=== PATIENT | female | born 1985 | race Caucasian/White ===

== ENCOUNTER 2017-08-06 00:29 | Emergency (ER) | payer OTHER ==
[2017-08-06 00:41] VITALS: BP 146/89; PULSE 106; RESP 18; TEMP 98.5
--- NOTE | 2017-08-06 01:25 | ED ---
General Adult HPI - General Chief complaint: ENT Stated complaint: ear pain,dizziness Time Seen by Provider: 08/06/17 00:51 Source: patient, family, RN notes reviewed Mode of arrival: ambulatory Limitations: no limitations - History of Present Illness Initial comments: 32-year-old female presents to the emergency department with a chief complaint of left-sided ear pain and dizziness. Patient states she's had this for about 2 weeks. She's been to the doctor and she went to an ENT. They state that she had some fluid behind her ear there referring her to an additional ENT to further evaluate. They state that she is also of severe hearing loss left ear. Patient states today she started noticing dizziness associated with this ear pain so she was concerned. Patient does admit to any other complaints such as weight loss as well as concern for hair loss. She states that she is most concerned due to the dizziness and ear pain and she is hoping that she could have us help her figure it out. She is hoping she had a CAT scan of her head. Patient's concerned maybe about living in her ear. Patient denies any recent fever, chills, shortness of breath, chest pain, back pain, abdominal pain, nausea vomiting, numbness or tingling, dysuria or hematuria, constipation or diarrhea, headaches or visual changes, or any other current symptoms. - Related Data Home Medications Medication Instructions Recorded Confirmed No Known Home Medications [No 08/06/17 08/06/17 Known Home Medications] Allergies Allergy/AdvReac Type Severity Reaction Status Date / Time No Known Allergies Allergy Verified 08/06/17 00:41 Review of Systems ROS Statement: Those systems with pertinent positive or pertinent negative responses have been documented in the HPI. ROS Other: All systems not noted in ROS Statement are negative. Past Medical History Past Medical History: No Reported History History of Any Multi-Drug Resistant Organisms: None Reported Past Surgical History: Back Surgery, Tonsillectomy Past Psychological History: No Psychological Hx Reported Smoking Status: Current every day smoker Past Alcohol Use History: None Reported Past Drug Use History: None Reported General Exam - General Exam Comments Initial Comments: General: The patient is awake and alert, in no distress, and does not appear acutely ill. Eye: Pupils are equal, round and reactive to light, extra-ocular movements are intact; there is normal conjunctiva bilaterally. No signs of icterus. Ears, nose, mouth and throat: There are moist mucous membranes and no oral lesions. Fluid noted behind both tympanic membranes noted. Neck: The neck is supple, there is no tenderness. Cardiovascular: There is a regular rate and rhythm. No murmur, rub or gallop is appreciated. Respiratory: Lungs are clear to auscultation, respirations are non-labored, breath sounds are equal. No wheezes, stridor, rales, or rhonchi. Gastrointestinal: Soft, non-distended, non-tender abdomen without masses or organomegaly noted. There is no rebound or guarding present. No CVA tenderness. Bowel sounds are unremarkable. Back: There is no tenderness to palpation in the midline. There is no obvious deformity. No rashes noted. Musculoskeletal: Normal ROM, no tenderness, There is no pedal edema. There is no calf tenderness or swelling. Sensation intact. Pulses equal bilaterally 2+. Neurological: CN II-XII intact, There are no obvious motor or sensory deficits. Coordination appears grossly intact. Speech is normal. Skin: Skin is warm and dry and no rashes or lesions are noted. Psychiatric: Cooperative, appropriate mood & affect, normal judgment. Limitations: no limitations Course Vital Signs 08/06/17 00:35 Temperature 98.5 F Pulse Rate 106 H Respiratory 18 Rate Blood Pressure 146/89 O2 Sat by Pulse 100 Oximetry Medical Decision Making - Medical Decision Making 32-year-old female presents for left ear pain and dizziness. She was recently prescribed steroids. We discussed that she is not currently filled. All the symptoms are chronic it's just her dizziness is new today. We will do a CAT scan of her head to further evaluate. At this time CAT scan is negative. We discussed to take the steroids and to follow-up with ENT to further evaluate her left ear effusion. Patient is in agreement with plan all cushions have been answered. She'll be discharged. - Radiology Data Radiology results: report reviewed, image reviewed Disposition Clinical Impression: Acute effusion of left ear Disposition: HOME SELF-CARE Condition: Stable Instructions: Earache (ED) Additional Instructions: Please use medication as discussed. Please follow up with family doctor if symptoms have not improved over the next two days. Please return to the emergency room if your symptoms increase or worsen or for any other concerns. Referrals: Flip Orozco MD [Primary Care Provider] - 1-2 days Time of Disposition: 01:47
--- NOTE | 2017-08-06 01:32 | CT ---
EXAMINATION TYPE: CT brain wo con DATE OF EXAM: 08/06/2017 COMPARISON: NONE HISTORY: dizzy, right ear pain CT DLP: 926.50 mGycm. Automated Exposure Control for Dose Reduction was Utilized. TECHNIQUE: CT scan of the head is performed without contrast. FINDINGS: Ventricles and sulci appear normal. There is no mass effect nor midline shift. There is no sign of intracranial hemorrhage. The calvarium is intact. Mastoid sinuses appear normal. Right bearing grinder al auditory canal appears normal. CONCLUSION: Negative CT scan of the brain..
== END 2017-08-06 01:53 | disposition home or self-care (01) ==
LOC: EC 00:29
DX: H93.8X2 Other specified disorders of left ear (principal); F17.200 Nicotine dependence, unspecified, uncomplicated
CPT/HCPCS: 70450; 99284

== ENCOUNTER 2017-09-02 13:59 | Emergency (ER) | payer OTHER ==
[2017-09-02 14:04] VITALS: BP 132/90; PULSE 94; RESP 20; TEMP 97.8
--- NOTE | 2017-09-02 14:36 | ED ---
General Adult HPI - General Chief complaint: Recheck/Abnormal Lab/Rx Stated complaint: mass in head/tired Time Seen by Provider: 09/02/17 14:26 Source: patient, family, RN notes reviewed Mode of arrival: ambulatory Limitations: no limitations - History of Present Illness Initial comments: patient is a pleasant 32-year-old female presenting to the emergency department for fatigue. Patient has been having symptoms for the past month. Patient complains of generalized fatigue and sleeping sometimes up to 20 hours per day. Patient is having headaches. Patient is having blurry vision. Patient is having decreased hearing and fullness in her ears. Patient states sometimes her arms feel numb. No weakness. Patient did follow-up with her doctor and had MRI done. MRI showed frontal mass and patient has an appointment to see a specialist however does not for 3 more weeks. - Related Data Home Medications Medication Instructions Recorded Confirmed Amoxicillin 500 mg PO DAILY 09/02/17 09/02/17 Allergies Allergy/AdvReac Type Severity Reaction Status Date / Time No Known Allergies Allergy Verified 09/02/17 14:22 Review of Systems ROS Statement: Those systems with pertinent positive or pertinent negative responses have been documented in the HPI. ROS Other: All systems not noted in ROS Statement are negative. Constitutional: Denies: fever Eyes: Reports: vision change. Denies: eye pain ENT: Denies: ear pain Respiratory: Denies: cough Cardiovascular: Denies: chest pain Endocrine: Reports: fatigue Gastrointestinal: Denies: abdominal pain Genitourinary: Denies: urgency Musculoskeletal: Denies: back pain Skin: Denies: rash Neurological: Reports: headache, paresthesias, vertigo Past Medical History Past Medical History: No Reported History History of Any Multi-Drug Resistant Organisms: None Reported Past Surgical History: Back Surgery, Tonsillectomy Past Psychological History: No Psychological Hx Reported Smoking Status: Current every day smoker Past Alcohol Use History: None Reported Past Drug Use History: None Reported General Exam Limitations: no limitations General appearance: alert, in no apparent distress Head exam: Present: atraumatic Eye exam: Present: normal appearance, PERRL, EOMI ENT exam: Present: normal oropharynx, TM's normal bilaterally Neck exam: Present: normal inspection Respiratory exam: Present: normal lung sounds bilaterally Cardiovascular Exam: Present: regular rate, normal rhythm GI/Abdominal exam: Present: soft. Absent: tenderness Extremities exam: Present: normal inspection Neurological exam: Present: alert, CN II-XII intact. Absent: motor sensory deficit Expanded Patient oriented to: Present: person, place, time Speech: Present: fluid speech Cranial nerves: Facial Sensation: Normal Cerebellar function: Finger to Nose: Normal Sensory exam: Upper Extremity Light Touch: Normal, Lower Extremity Light Touch: Normal Motor strength exam: RUE: 5, LUE: 5, RLE: 5, LLE: 5 Eye Response: (4) open spontaneously Motor Response: (6) obeys commands Verbal Response: (5) oriented Psychiatric exam: Present: normal affect, normal mood Skin exam: Present: normal color Course Vital Signs 09/02/17 14:02 Temperature 97.8 F Pulse Rate 94 Respiratory 20 Rate Blood Pressure 132/90 O2 Sat by Pulse 100 Oximetry Medical Decision Making - Medical Decision Making MRI report obtained from [facility]. It does show a 9 x 4 mm nonspecific lesion. Possibly related to early chronic small vessel disease, dementia immunization from chronic migraine, early demyelinating disease. Patient does report chronic migraines since a young child. Patient states her symptoms are not significantly worsened since MRI was done on the first. patient has also had recent blood work. Patient does not want repeat computed tomography scan or repeat blood work done at this time and is comfortable with discharge home. Family is present. Disposition Clinical Impression: Cerebral lesion, Headache Disposition: HOME SELF-CARE Condition: Stable Instructions: General Headache (ED) Additional Instructions: please follow-up to primary care physician in the next day or 2 for recheck. Please follow-up also with neurology. Return for increased pain, weakness, drowsiness, unable to perform activities of daily living, fevers, worsening symptoms or other concerns. Referrals: Flip Orozco MD [Primary Care Provider] - 1-2 days Pardeep Austin MD [STAFF PHYSICIAN] - 1-2 days Time of Disposition: 15:13
== END 2017-09-02 15:22 | disposition home or self-care (01) ==
LOC: EC 13:59
DX: G93.9 Disorder of brain, unspecified (principal); R40.2142 Coma scale, eyes open, spontaneous, at arrival to emergency department; R40.2252 Coma scale, best verbal response, oriented, at arrival to emergency department; R40.2362 Coma scale, best motor response, obeys commands, at arrival to emergency department; F17.200 Nicotine dependence, unspecified, uncomplicated
CPT/HCPCS: 99283

== ENCOUNTER 2018-01-09 04:40 | Emergency (ER) | payer OTHER ==
[2018-01-09 04:48] VITALS: RESP 20
[2018-01-09] MEDS ORDERED: LORazepam 1 MG TAB PO STA (05:19)
--- NOTE | 2018-01-09 05:22 | ED ---
Medical Clearance HPI - General Chief complaint: Medical Clearance Stated complaint: Hypertension/Longterm Clearance Time Seen by Provider: 01/09/18 04:52 Source: patient Mode of arrival: ambulatory - History of Present Illness Initial comments: This patient is a 32-year-old woman brought to have clearance to be taken into police custody. The patient's of was being arrested and police noticed that she had what appeared to be some white powder on her hands and they believe that it was cocaine. The patient then was noted to have some palpitations and her heart rate was high. They brought her here for evaluation. The patient is denying chest pain. MD Complaint: medical clearance requested Onset/Timin -: hour(s) Reason for Medical Clearance: intoxication Place: street Traumatic Symptoms: denies traumatic injury Associated Symptoms: palpitations Treatments Prior to Arrival: none Home medications: Home Medications Medication Instructions Recorded Confirmed oxyCODONE-APAP 10-325MG [Percocet 1 tab PO Q6HR PRN 01/09/18 01/09/18 10-325 mg] Allergies/Adverse reactions: Allergies Allergy/AdvReac Type Severity Reaction Status Date / Time No Known Allergies Allergy Verified 01/09/18 04:48 Review of Systems ROS Statement: Those systems with pertinent positive or pertinent negative responses have been documented in the HPI. ROS Other: All systems not noted in ROS Statement are negative. Constitutional: Denies: fever Respiratory: Denies: cough, dyspnea Cardiovascular: Reports: palpitations. Denies: chest pain, dyspnea on exertion , edema Gastrointestinal: Denies: abdominal pain, vomiting, diarrhea Musculoskeletal: Denies: back pain Skin: Denies: rash Neurological: Denies: headache, weakness, numbness Psychiatric: Reports: anxiety Past Medical History Past Medical History: No Reported History Additional Past Medical History / Comment(s): brain tumor benign History of Any Multi-Drug Resistant Organisms: None Reported Past Surgical History: Back Surgery, Tonsillectomy Past Psychological History: No Psychological Hx Reported Smoking Status: Current every day smoker Past Alcohol Use History: None Reported Past Drug Use History: Marijuana General Exam Limitations: no limitations General appearance: alert, in no apparent distress, appears intoxicated Head exam: Present: atraumatic, normocephalic Eye exam: Present: normal appearance, PERRL, EOMI. Absent: scleral icterus, conjunctival injection ENT exam: Present: normal oropharynx Neck exam: Present: normal inspection, full ROM Respiratory exam: Present: normal lung sounds bilaterally. Absent: respiratory distress, wheezes, rales, rhonchi, stridor Cardiovascular Exam: Present: normal rhythm, tachycardia, normal heart sounds. Absent: systolic murmur, diastolic murmur, rubs, gallop GI/Abdominal exam: Present: soft. Absent: distended, tenderness, guarding, rebound, rigid Extremities exam: Present: normal inspection, normal capillary refill. Absent: pedal edema, calf tenderness Back exam: Present: normal inspection. Absent: CVA tenderness (R), CVA tenderness (L) Neurological exam: Present: alert Skin exam: Present: warm, dry, intact, normal color. Absent: rash Course Vital Signs 01/09/18 01/09/18 04:44 06:33 Temperature 98.9 F 98.6 F Pulse Rate 117 H 116 H Respiratory 20 20 Rate Blood Pressure 169/90 139/85 O2 Sat by Pulse 99 97 Oximetry Medical Decision Making - EKG Data -: EKG Interpreted by Ms EKG shows normal: sinus rhythm, axis (Normal), intervals (Normal), QRS complexes (Normal), ST-T waves (Normal) Rate: tachycardia (Rate approximately 108 bpm) Interpretation: normal EKG Disposition Clinical Impression: Tachycardia Disposition: HOME SELF-CARE Condition: Good Instructions: Tachycardia (ED) Referrals: Flip Orozco MD [STAFF PHYSICIAN] - 1-2 days
--- NOTE | 2018-01-09 06:10 | CT ---
EXAM: CT Head Without Intravenous Contrast CLINICAL HISTORY: ITS.REASON CT Reason: Pain TECHNIQUE: Axial computed tomography images of the head/brain without intravenous contrast. CTDI is 57.40 mGy and DLP is 978.20 mGy-cm. This CT exam was performed using one or more of the following dose reduction techniques: automated exposure control, adjustment of the mA and/or kV according to patient size, and/or use of iterative reconstruction technique. COMPARISON: 08/06/17 FINDINGS: Brain: Unremarkable. No hemorrhage. No significant white matter disease. No edema. Ventricles: Unremarkable. No ventriculomegaly. Bones/joints: Unremarkable. No acute fracture. Soft tissues: Unremarkable. Sinuses: Unremarkable as visualized. No acute sinusitis. Mastoid air cells: Unremarkable as visualized. No mastoid effusion. IMPRESSION: Normal head/brain CT.
[2018-01-09 06:34] VITALS: BP 139/85; PULSE 116; TEMP 98.6
== END 2018-01-09 06:33 | disposition home or self-care (01) ==
LOC: EC 04:40
DX: R00.0 Tachycardia, unspecified (principal); R00.2 Palpitations; F10.129 Alcohol abuse with intoxication, unspecified; F17.200 Nicotine dependence, unspecified, uncomplicated; Z86.011 Personal history of benign neoplasm of the brain; Z53.8 Procedure and treatment not carried out for other reasons
CPT/HCPCS: 70450; 99283

== ENCOUNTER 2024-07-15 17:41 | Inpatient (IN) | payer BC, OTHER ==
[2024-07-15] MEDS ORDERED: LORazepam 2 MG/ML INJ IV PRN ×3 (18:02)
--- NOTE | 2024-07-15 18:06 | ED ---
Seizure HPI - General Chief Complaint: Seizure Stated Complaint: Seizure Time Seen by Provider: 07/15/24 17:43 Source: EMS, RN notes reviewed, old records reviewed Mode of arrival: EMS Limitations: altered mental status - History of Present Illness Initial Comments: This is a 39-year-old female to ER from incarceration patient is on day 5 of incarceration with 5 days of alcohol abstinence as well as benzodiazepine abdomen secondary to incarceration patient presents with seizure MD Complaint: seizure, possible seizure -: minutes(s) Description of Episode: loss of consciousness, tonic-clonic movement -: second(s) Witnessed: yes - by bystander, yes - by EMS Trauma: Yes Seizure History: known seizure disorder, history of withdrawal seizures Place: home Possible Precipitating Event: none Associated Symptoms: denies other symptoms - Related Data Home Medications Medication Instructions Recorded Confirmed Acetaminophen [Tylenol] 650 mg PO TID PRN 07/15/24 07/15/24 Dicyclomine [Bentyl] 20 mg PO TID PRN 07/15/24 07/15/24 Loperamide HCl [Loperamide] 2 mg PO TID PRN 07/15/24 07/15/24 Promethazine [Phenergan] 25 mg PO TID PRN 07/15/24 07/15/24 cloNIDine HCL [Catapres] 0.1 mg PO TID PRN 07/15/24 07/15/24 hydrOXYzine pamoate [Vistaril] 50 mg PO TID PRN 07/15/24 07/15/24 Previous Rx's Medication Instructions Recorded Folic Acid 1 mg PO DAILY 30 Days #30 tab 07/18/24 Multivitamins, Thera [Multivitamin 1 each PO DAILY 30 Days #30 tab 07/18/24 (formulary)] Thiamine [Vitamin B-1] 100 mg PO DAILY 30 Days #30 tab 07/18/24 Allergies Allergy/AdvReac Type Severity Reaction Status Date / Time No Known Allergies Allergy Verified 07/15/24 17:58 Review of Systems ROS Statement: Those systems with pertinent positive or pertinent negative responses have been documented in the HPI. ROS Other: All systems not noted in ROS Statement are negative. Past Medical History Past Medical History: No Reported History Additional Past Medical History / Comment(s): brain tumor benign History of Any Multi-Drug Resistant Organisms: None Reported Past Surgical History: Back Surgery, Tonsillectomy Past Psychological History: No Psychological Hx Reported Smoking Status: Current every day smoker Past Alcohol Use History: Abuse, Daily, Heavy Past Drug Use History: Marijuana, Prescription Drug Abuse - Past Family History Father Family Medical History: Unable to Obtain General Exam Limitations: altered mental status General appearance: alert, in no apparent distress, anxious Head exam: Present: atraumatic, normocephalic, normal inspection Eye exam: Present: normal appearance, PERRL, EOMI. Absent: scleral icterus, conjunctival injection, periorbital swelling ENT exam: Present: normal exam, mucous membranes moist Neck exam: Present: normal inspection. Absent: tenderness, meningismus, lymphadenopathy Respiratory exam: Present: normal lung sounds bilaterally. Absent: respiratory distress, wheezes, rales, rhonchi, stridor Cardiovascular Exam: Present: regular rate, normal rhythm, normal heart sounds. Absent: systolic murmur, diastolic murmur, rubs, gallop, clicks GI/Abdominal exam: Present: soft, normal bowel sounds. Absent: distended, tenderness, guarding, rebound, rigid Extremities exam: Present: normal inspection, full ROM, normal capillary refill. Absent: tenderness, pedal edema, joint swelling, calf tenderness Back exam: Present: normal inspection Neurological exam: Present: alert, oriented X3, CN II-XII intact Psychiatric exam: Present: normal affect, normal mood Skin exam: Present: warm, dry, intact, normal color. Absent: rash Course Vital Signs 07/15/24 07/15/24 07/15/24 17:44 20:00 22:00 Temperature 98.6 F Pulse Rate 79 79 88 Respiratory 20 18 18 Rate Blood Pressure 111/72 119/82 111/70 O2 Sat by Pulse 98 97 98 Oximetry 07/16/24 07/16/24 07/16/24 00:00 00:51 02:00 Temperature 98.2 F Pulse Rate 86 80 Respiratory 18 18 Rate Blood Pressure 122/86 126/95 O2 Sat by Pulse 98 97 Oximetry 07/16/24 07/16/24 07/16/24 03:30 04:00 06:04 Temperature Pulse Rate 78 86 75 Respiratory 18 18 18 Rate Blood Pressure 134/81 110/85 124/90 O2 Sat by Pulse 100 100 99 Oximetry 07/16/24 13:28 Temperature 98 F Pulse Rate 82 Respiratory 19 Rate Blood Pressure 120/72 O2 Sat by Pulse 100 Oximetry - Reevaluation(s) Reevaluation #1: 07/15/24 18:39 Medical records reviewed Reevaluation #2: 07/15/24 18:39 Symptoms unchanged no recurrent seizure Reevaluation #3: 07/15/24 18:39 Patient informed of results questions answered Reevaluation #4: Was pt. sent in by a medical professional or institution (, [facility], [employer] [employer], urgent care, hospital, or [facility]...) When possible be specific @ -no Did you speak to anyone other than the patient for history (EMS, parent, family, police, friend...)? What history was obtained from this source @ -no Did you review nursing and triage notes (agree or disagree)? Why? @ -agree Are old charts reviewed (outside hosp., previous admission, EMS record, old EKG, old radiological studies, urgent care reports/EKG's, [facility] records)? Report findings @ -yes Differential Diagnosis (chest pain, altered mental status, abdominal pain women, abdominal pain men, vaginal bleeding, weakness, fever, dyspnea, syncope, headache, dizziness, GI bleed, back pain, seizure, CVA, palpatations, mental health, musculoskeletal)? @ -prior EKG interpreted by me (3pts min.). @ -yes X-rays interpreted by me (1pt min.). @ -no CT interpreted by me (1pt min.). @ -no U/S interpreted by me (1pt. min.). @ -no What testing was considered but not performed or refused? (CT, X-rays, U/S, labs)? Why? @ -none What meds were considered but not given or refused? Why? @ -none Did you discuss the management of the patient with other professionals (professionals i.e. [facility], [employer], lab, RT, psych nurse, social economist, fuller brush man, teacher, security police officer, rn case manager hospice)? Give summary @ -no Was smoking cessation discussed for >3mins.? @ -no Was critical care preformed (if so, how long)? @ -no Were there social determinants of health that impacted care today? How? (H omelessness, low income, unemployed, alcoholism, drug addiction, transportation, low edu. Level, literacy, decrease access to med. care, nursing home, rehab)? @ -none Was there de-escalation of care discussed even if they declined (Discuss DNR or withdrawal of care, Hospice)? DNR status @ -no What co-morbidities impacted this encounter? (DM, HTN, Smoking, COPD, CAD, Cancer, CVA, ARF, Chemo, Hep., AIDS, mental health diagnosis, sleep apnea, morbid obesity)? @ -none Was patient admitted / discharged? Hospital course, mention meds given and route, prescriptions, significant lab abnormalities, going to OR and other pertinent info. @ - 39 female to ER will admit for alcohol withdrawal benzodiazepine withdrawal seizure Discharge Undiagnosed new problem with uncertain prognosis? @ -no Drug Therapy requiring intensive monitoring for toxicity (Heparin, Nitro, Insulin, Cardizem)? @ -no Were any procedures done? @ -no Diagnosis/symptom? @ -Severe withdrawal with seizures Acute, or Chronic, or Acute on Chronic? @ -Acute Uncomplicated (without systemic symptoms) or Complicated (systemic symptoms)? @ -Complicated Side effects of treatment? @ -no Exacerbation, Progression, or Severe Exacerbation? @ -exacerbation Poses a threat to life or bodily function? How? (Chest pain, USA, MT, pneumonia, PE, COPD, DKA, ARF, appy, cholecystitis, CVA, Diverticulitis, Homicidal, Suicidal, threat to staff... and all critical care pts) @ -yes with seizures and withdrawal Reevaluation #5: Differential Seizure: Recurrent seizure disorder, febrile seizure, alcohol withdrawal, stimulants, meningitis, encephalitis, intercranial hemorrhage, intracranial tumor, stroke, eclampsia, thyrotoxicosis, hypocalcemia, hyponatremia, hypernatremia, hypomagnesemia, psychogenic, this is not meant to be an all-inclusive list. - Consultations Consultation #1: Spoke with rebecca who agrees to admit this patient Medical Decision Making - Medical Decision Making 39 female to ER will admit for alcohol withdrawal benzodiazepine withdrawal seizure - Lab Data Result diagrams: 07/17/24 07:34 07/17/24 07:34 Lab Results 07/15/24 07/15/24 07/15/24 Range/Units 18:30 18:30 18:30 WBC 15.9 H (3.8-10.6) k/uL RBC 5.00 (3.80-5.40) m/uL Hgb 15.6 (11.4-16.0) gm/dL Hct 45.8 (34.0-46.0) % MCV 91.5 (80.0-100.0) fL MCH 31.2 (25.0-35.0) pg MCHC 34.1 (31.0-37.0) g/dL RDW 13.2 (11.5-15.5) % Plt Count 367 (150-450) k/uL MPV 7.2 Neutrophils % 68 % Lymphocytes % 21 % Monocytes % 9 % Eosinophils % 1 % Basophils % 0 % Neutrophils # 10.8 H (1.3-7.7) k/uL Lymphocytes # 3.4 (1.0-4.8) k/uL Monocytes # 1.4 H (0-1.0) k/uL Eosinophils # 0.1 (0-0.7) k/uL Basophils # 0.1 (0-0.2) k/uL PT 11.8 (10.0-12.5) sec INR 1.1 (<1.2) Sodium 142 (137-145) mmol/L Potassium 3.4 L (3.5-5.1) mmol/L Chloride 110 H (98-107) mmol/L Carbon Dioxide 25 (22-30) mmol/L Anion Gap 7 mmol/L BUN 14 (7-17) mg/dL Creatinine 0.73 (0.52-1.04) mg/dL Est GFR (CKD-EPI)AfAm >90 (>60 ml/min/1.73 sqM) Est GFR (CKD-EPI)NonAf >90 (>60 ml/min/1.73 sqM) Glucose 113 H (74-99) mg/dL Calcium 9.2 (8.4-10.2) mg/dL Phosphorus 3.0 (2.5-4.5) mg/dL Magnesium 2.0 (1.6-2.3) mg/dL Total Bilirubin 0.7 (0.2-1.3) mg/dL AST 19 (14-36) U/L ALT 10 (4-34) U/L Alkaline Phosphatase 44 (38-126) U/L Total Protein 6.0 L (6.3-8.2) g/dL Albumin 3.7 (3.5-5.0) g/dL Lipase 169 (23-300) U/L Serum Alcohol <10 mg/dL - EKG Data -: EKG Interpreted by Me (EKG is sinus 93 GA 88 QRS 75 QTc 519) Disposition Clinical Impression: New onset seizure, Generalized seizure, Withdrawal seizures Disposition: ADMITTED IP TO THIS HOSP Condition: Stable Is patient prescribed a controlled substance at d/c from ED?: No Time of Disposition: 18:30
[2024-07-15] MEDS: LORazepam 2 MG/ML INJ IV STA (18:21)
[2024-07-15] MEDS: SODIUM CHLORIDE 0.9% 500 ML 500 ML IV STA (18:21)
[2024-07-15] MEDS: SODIUM CHLORIDE 0.9% 1,000 ML IV STA (18:21)
[2024-07-15] MEDS ORDERED: NALOXONE 0.4 MG/ML 1 ML VIAL IV PRN (18:35)
[2024-07-15] MEDS ORDERED: ONDANSETRON 4 MG/2 ML VIAL IVP PRN (18:35)
[2024-07-15 19:27] LABS: INR 1.1 (<1.2); Prothrombin Time 11.8 sec (10.0-12.5)
[2024-07-15 19:36] LABS: ALT 10 U/L (4-34); AST 19 U/L (14-36); African American GFR (CKD) >90 (>60 ml/min/1.73 sqM); Albumin 3.7 g/dL (3.5-5.0); Alcohol <10 mg/dL; Alkaline Phosphatase 44 U/L (38-126); Anion Gap 7 mmol/L; Blood Urea Nitrogen 14 mg/dL (7-17); Calcium 9.2 mg/dL (8.4-10.2); Carbon Dioxide 25 mmol/L (22-30); Chloride 110 mmol/L (98-107); Glucose 113 mg/dL (74-99); Lipase 169 U/L (23-300); Non-African American GFR(CKD) >90 (>60 ml/min/1.73 sqM); Potassium 3.4 mmol/L (3.5-5.1); Sodium 142 mmol/L (137-145); Total Bilirubin 0.7 mg/dL (0.2-1.3)
[2024-07-15 19:37] LABS: Basophils # (A) 0.1 k/uL (0-0.2); Basophils % (A) 0 %; Eosinophils # (A) 0.1 k/uL (0-0.7); Eosinophils % (A) 1 %; HCT 45.8 % (34.0-46.0); HGB 15.6 gm/dL (11.4-16.0); Lymphocytes # (A) 3.4 k/uL (1.0-4.8); Lymphocytes % (A) 21 %; MCH 31.2 pg (25.0-35.0); MCHC 34.1 g/dL (31.0-37.0); MCV 91.5 fL (80.0-100.0); Mean Platelet Volume 7.2; Monocytes # (A) 1.4 k/uL (0-1.0); Monocytes % (A) 9 %; Neutrophils # (A) 10.8 k/uL (1.3-7.7); Neutrophils % (A) 68 %; Platelet Count 367 k/uL (150-450); RDW 13.2 % (11.5-15.5); WBC 15.9 k/uL (3.8-10.6)
[2024-07-15] MEDS: SODIUM CHLORIDE 0.9% 1,000 ML IV SCH (20:16)
--- NOTE | 2024-07-15 22:43 | P.HPIM ---
History of Present Illness H&P Date: 07/15/24 Chief Complaint: seizure Patient is a 39-year-old female with chronic alcoholism presenting with acute alcohol withdrawal. Patient pacing day 5 of being incarcerated. Patient reports last alcoholic beverage was 5 days ago. She states she would drink 1/5 of vodka every day for the past few months. Patient states around 5 PM today's she felt short of breath and pressure around her chest. Patient admits to feeling nauseous followed by vomiting multiple times, and admits to episode of diarrhea. She was told that she had episode of seizures by witnesses. Patient admits to having tremors, seizures and eventually blacked out. She she says she has had a history of alcoholic seizure withdrawal before. Review of systems: Pertinent positives and negatives as discussed in HPI, a complete review of systems was performed and all other systems are negative. Physical examination: Vitals: 98.6 F, VT 79, RR 18, BP 119/82, O2 sat 97% on room air General: non toxic, no distress, appears at stated age, normal weight Derm: no unusual rashes/lesions, warm Head: atraumatic, normocephalic, symmetric Eyes: EOMI, anicteric sclera, pupils equal round reactive to light ENT: Nose and ears atraumatic Mouth: no lip lesion, mucus membranes moist Cardiovascular: S1S2 reg, no murmur, positive dorsalis pedis pulse bilateral, no edema Lungs: CTA bilateral, no rhonchi, no rales, no accessory muscle use Abdominal: soft, tender to palpation upper abdomen no guarding Ext: muscle strength 5 out of 5 in all 4 extremities grossly, no gross muscle atrophy Neuro: CN II-XI grossly intact, no gross focal neuro deficits Psych: Alert, oriented to person, place, and time Assessment/Plan: Patient is a 39-year-old female with chronic alcoholism presenting with acute alcohol withdrawal. ED documentation reviewed and case discussed with ED provider. Discussed with patient. The patient is admitted with an anticipated greater than than 2 midnight stay for evaluation of acute alcohol withdrawal. #. Acute alcohol withdrawal History of chronic alcohol abuse, last alcoholic beverage was 5 days ago Patient admits to seizures, tremors, auditory hallucinations Lipase 169 wnl, Serum alcohol <10 EKG independently interpreted shows sinus rhythm with shortened VT interval, T wave version V1V2, rate 93 bpm, QTc 519 ms benzo per CIWA protocol Seizure precautions Fall precautions Monitor for hypoglycemia Thiamine 100 mg p.o. daily Folic acid 1 mg p.o. daily Cardiac monitoring NS @ 75 cc/HR #. Hypokalemia K 3.4 orded 20 mEq potassium chloride tab PO once Follow-up CMP BUN 14 cr 0.7 unremarkable #. Leukocytosis Neutrophilic predominance (10.8), no left shift, wbc 15.9,afebrile Likely reactive Order chest x-ray Follow-up CBC F: NS @ 75 cc/HR E: Replete electrolytes as needed N: Regular diet A: Seizure and fall precaution DVT prophylaxis: Lovenox 40 SQ daily CODE STATUS: Full code Past Medical History Past Medical History: No Reported History Additional Past Medical History / Comment(s): brain tumor benign History of Any Multi-Drug Resistant Organisms: None Reported Past Surgical History: Back Surgery, Tonsillectomy Past Psychological History: No Psychological Hx Reported Smoking Status: Current every day smoker Past Alcohol Use History: Abuse, Daily, Heavy Past Drug Use History: Marijuana, Prescription Drug Abuse Medications and Allergies Home Medications Medication Instructions Recorded Confirmed Type Acetaminophen [Tylenol] 650 mg PO TID PRN 07/15/24 07/15/24 History Dicyclomine [Bentyl] 20 mg PO TID PRN 07/15/24 07/15/24 History Loperamide HCl [Loperamide] 2 mg PO TID PRN 07/15/24 07/15/24 History Promethazine [Phenergan] 25 mg PO TID PRN 07/15/24 07/15/24 History cloNIDine HCL [Catapres] 0.1 mg PO TID PRN 07/15/24 07/15/24 History hydrOXYzine pamoate [Vistaril] 50 mg PO TID PRN 07/15/24 07/15/24 History Allergies Allergy/AdvReac Type Severity Reaction Status Date / Time No Known Allergies Allergy Verified 07/15/24 17:58 Physical Exam Vitals: Vital Signs Temp Pulse Resp BP Pulse Ox 07/15/24 20:00 79 18 119/82 97 07/15/24 17:44 98.6 F 79 20 111/72 98 Intake and Output 07/15/24 07/15/24 07/15/24 06:59 14:59 22:59 Other: Weight 57.153 kg Results CBC & Chem 7: 07/15/24 18:30 07/15/24 18:30 Labs: Abnormal Lab Results - Last 24 Hours (Table) 07/15/24 07/15/24 Range/Units 18:30 18:30 WBC 15.9 H (3.8-10.6) k/uL Neutrophils # 10.8 H (1.3-7.7) k/uL Monocytes # 1.4 H (0-1.0) k/uL Potassium 3.4 L (3.5-5.1) mmol/L Chloride 110 H (98-107) mmol/L Glucose 113 H (74-99) mg/dL Total Protein 6.0 L (6.3-8.2) g/dL Assessment and Plan Assessment: I have seen and evaluated the patient today. I Discussed the case with the resident and agree with the resident's findings I edited the assessment and plan as necessary as documented in the resident's note.
[2024-07-15] MEDS: ENOXAPARIN 40 MG/0.4 ML SYRINGE SQ SCH (23:00)
--- NOTE | 2024-07-15 23:10 | XR ---
EXAMINATION TYPE: XR chest 1V portable DATE OF EXAM: 07/15/2024 CLINICAL HISTORY: Chest pain. TECHNIQUE: Single AP portable frontal upright view of the chest is obtained. COMPARISON: None FINDINGS: There is no focal air space opacity, pleural effusion, or pneumothorax seen. The cardiac silhouette size is within normal limits. The osseous structures are intact. IMPRESSION: No acute process. [facility], , 07/15/2024 11:08 PM
[2024-07-15] MEDS: THIAMINE 100 MG TAB PO SCH (23:30)
[2024-07-15] MEDS: POTASSIUM CHLORIDE ER 20 MEQ TAB.ER PO STA (23:30)
[2024-07-15] MEDS: LORazepam 1 MG TAB PO PRN (23:37)
[2024-07-16 05:59] LABS: Basophils # (A) 0.1 k/uL (0-0.2); Basophils % (A) 0 %; Eosinophils # (A) 0.1 k/uL (0-0.7); Eosinophils % (A) 1 %; HCT 40.4 % (34.0-46.0); HGB 13.7 gm/dL (11.4-16.0); Lymphocytes # (A) 3.3 k/uL (1.0-4.8); Lymphocytes % (A) 27 %; MCH 31.2 pg (25.0-35.0); MCHC 33.8 g/dL (31.0-37.0); MCV 92.3 fL (80.0-100.0); Monocytes # (A) 0.6 k/uL (0-1.0); Monocytes % (A) 5 %; Neutrophils % (A) 65 %; Platelet Count 321 k/uL (150-450); RBC 4.38 m/uL (3.80-5.40); RDW 13.2 % (11.5-15.5); WBC 12.2 k/uL (3.8-10.6)
[2024-07-16 06:15] LABS: ALT 10 U/L (4-34); AST 19 U/L (14-36); African American GFR (CKD) >90 (>60 ml/min/1.73 sqM); Albumin 3.2 g/dL (3.5-5.0); Alkaline Phosphatase 38 U/L (38-126); Anion Gap 1 mmol/L; Blood Urea Nitrogen 12 mg/dL (7-17); Calcium 8.7 mg/dL (8.4-10.2); Carbon Dioxide 22 mmol/L (22-30); Chloride 112 mmol/L (98-107); Glucose 85 mg/dL (74-99); Magnesium 1.7 mg/dL (1.6-2.3); Non-African American GFR(CKD) >90 (>60 ml/min/1.73 sqM); Phosphorus 3.5 mg/dL (2.5-4.5); Potassium 3.6 mmol/L (3.5-5.1); Sodium 135 mmol/L (137-145); Total Bilirubin 0.8 mg/dL (0.2-1.3); Total Protein 5.5 g/dL (6.3-8.2)
[2024-07-16] MEDS: LORazepam 1 MG TAB PO PRN (06:26)
[2024-07-16] MEDS: MAGNESIUM SULFATE-D5W PMX 1 GM in DEXTROSE/WATER 1 100ML.BAG IVPB SCH (08:41)
[2024-07-16] MEDS: MULTIVITAMINS, THERA 1 EACH TAB PO SCH (08:46)
[2024-07-16] MEDS: FOLIC ACID 1 MG TAB PO SCH (08:46)
--- NOTE | 2024-07-16 10:29 | CT ---
EXAMINATION TYPE: CT brain wo/w con DATE OF EXAM: 07/16/2024 COMPARISON: 01/09/2018 INDICATION: seizure, pt reports hx of brain tumor DLP: 3643.4 mGycm, Automated exposure control for dose reduction was used. CONTRAST: None CT of the brain is performed utilizing 3 mm thick sections through the posterior fossa and 3 mm thick sections through the remaining calvarium. Study is performed within 24 hours of arrival to the hosp ital. No abnormal hyperdensity is present to suggest an acute intracranial hemorrhage. No mass lesion is evident. Punctate calcification appears persistent at the anterior third ventricle. Sammon is stable from comparison. No acute infarcts are evident. Ventricles and sulci are appropriate for the patient age. No temporal horn dilatation is evident. Mild mucosal thickening within right maxillary sinus. Very medial wall left maxillary sinus thickenin g is present. Remaining paranasal sinuses and mastoid air cells are clear. Following contrast, no abnormal enhancement is evident IMPRESSION: 1. No acute intracranial process. Follow up MRI can be performed as clinically indicated. 2. Exam appears stable from comparison. [facility], , 07/16/2024 10:27 AM
--- NOTE | 2024-07-16 14:01 | P.PN ---
Subjective Progress Note Date: 07/16/24 Hospital course: Patient is a 39-year-old female with a past medical history of daily alcohol abuse with last drink being 5 days ago as she was incarcerated on 07/12/2024, polysubstance abuse with opioids and benzodiazepines, and reports of a benign brain tumor. She presented to the emergency department on 07/15/2024 in custody of [facility] secondary to reports of witnessed seizure-like activity and concerns of alcohol withdrawal. Per [facility] officers seizure activity lasted less than 1 minute. Upon arrival to our facility patient underwent evaluation in the emerg ency department. Vital signs upon arrival show blood pressure 111/72, heart rate 79, respiratory rate 20, temp 98.6 F, and SpO2 of 98% on room air. EKG was completed showing normal sinus rhythm at 93 bpm with T wave inversion in inferior leads III and aVF. Labs were completed and reviewed. CBC showing leukocytosis with WBC count of 15.9, coagulation profile normal findings. BMP showing hypokalemia with potassium of 3.4 and hyperchloremia with chloride of 110 otherwise normal findings. Blood glucose was 113. Troponin was less than 0.012. And serum alcohol level was less than 10. Patient admitted under our services for medical detox with plans to release back to [facility] once medically s table. Physical exam: Patient seen and fully evaluated at bedside this morning. She was slightly fidgety and unable to sit still with reports of nausea but denies any other complaints at this time. [facility] officer remains at bedside. Vital signs reviewed and stable. General: Nontoxic, no distress and appears stated age. Derm: Skin warm and dry, normal coloration for ethnicity. Head: Atraumatic, normocephalic and symmetric. Eyes: EOM's intact, no lid lag, and anicteric sclera Mouth: no lip lesions, mucus membranes moist Cardiovascular: regular rate and rhythm with normal S1S2, no murmur, positive posterior tibial pulses bilaterally, and cap refill < 2 seconds. Lungs: Respirations even, regular, and unlabored on room air. Lungs CTA bilaterally, no rhonchi, no rales, no wheezing, and no accessory muscle usage. Abdominal: soft, nontender to palpation, no guarding, no appreciable organomegaly Ext: ROM intact. No gross muscle atrophy, no edema, no contractures Neuro: Speech clear, face symmetrical and CN II-XII grossly intact with no noted focal neuro deficits. Mild tremors noted. Psych: Alert and oriented to person, place, time, and situation. Patient appears anxious and fidgety. Assessment and Plan of Care: Alcohol withdraw Witnessed seizure activity, suspect alcohol withdrawal Hypomagnesemia History of polysubstance abuse with opioids and benzodiazepines History of daily alcohol abuse, patient incarcerated on 07/12/2024 Reported history of benign brain tumor Hypokalemia, resolved -Continue r monitoring of CIWA scores and patient to be medicated with Ativan 0.5 mg every 4 hours as needed for CIWA score of 4-5, Ativan 1 mg every 4 hours for CIWA score of 6-7, Ativan 2 mg every 3 hours CIWA score of 8-9, and Ativan 2 mg every 2 hours forr CIWA score of 10 or greater. Most recent CIWA score 11. Patient has received 6 mg of Ativan overnight. -Continuous IV hydration with 0.9% normal saline at 75 cc/h. -Thiamine 100 mg daily, and Multivitamin daily, and Folate 1 mg daily -Seizure, fall, aspiration, and elopement precautions in place. -Order placed for stat serum hCG which was negative for . -Continued close monitoring of electrolytes and replace as needed. -Telemetry monitoring. -Order placed for CT brain, patient presented with witnessed seizure activity suspected to be secondary to EtOH withdrawal as it has been 5 days since patient's last drink with reports of daily alcohol abuse drinking a minimum of 1/5 of vodka daily. However patient also reporting history of brain tumor, therefore we will send patient for CT brain for further evaluation. Pending results of CT brain, may consider EEG. Data and imaging reviewed: Serum hCG negative. CBC showing improvement of leukocytosis with WBC count of 12.2 from previous 15.9. BMP showing resolution of hypokalemia with potassium previously 3.4 now 3.6 and persistent hyperchloremia with chloride of 112. Magnesium was low at 1.7. Liver profile normal findings with exception of hypoalbuminemia with albumin of 3.2. Vital signs reviewed. Blood pressure 124/90, heart rate 75, respiratory rate 18, temp 98.0 F, and SpO2 of 99% on room air. CODE STATUS: Full code DVT prophylaxis: Lovenox Anticipated discharge date: Pending clinical course likely within the next [address]: Return into custody of [facility], [facility] officer remains at bedside. Patient was seen independently by Nurse Pracitioner. This document was prepared using [employer] dictation software. Please allow for er rors in room worker, while rare they do occur. I reviewed the documentation as provided by the CRYSTAL above, who is the original author of this note. I agree with the documented assessment and plan, with the following changes: none Objective - Vital Signs Vital signs: Vital Signs Temp 98.2 F 07/16/24 00:51 Pulse 75 07/16/24 06:04 Resp 18 07/16/24 06:04 BP 124/90 07/16/24 06:04 Pulse Ox 99 07/16/24 06:04 FiO2 Intake & Output 07/15/24 07/16/24 07/16/24 18:59 06:59 18:59 Weight 57.153 kg - Labs CBC & Chem 7: 07/16/24 05:38 07/16/24 05:38 Labs: Abnormal Lab Results - Last 24 Hours (Table) 07/15/24 07/15/24 07/16/24 Range/Units 18:30 18:30 05:38 WBC 15.9 H 12.2 H (3.8-10.6) k/uL Neutrophils # 10.8 H 8.0 H (1.3-7.7) k/uL Monocytes # 1.4 H (0-1.0) k/uL Sodium (137-145) mmol/L Potassium 3.4 L (3.5-5.1) mmol/L Chloride 110 H (98-107) mmol/L Glucose 113 H (74-99) mg/dL Total Protein 6.0 L (6.3-8.2) g/dL Albumin (3.5-5.0) g/dL 07/16/24 Range/Units 05:38 WBC (3.8-10.6) k/uL Neutrophils # (1.3-7.7) k/uL Monocytes # (0-1.0) k/uL Sodium 135 L (137-145) mmol/L Potassium (3.5-5.1) mmol/L Chloride 112 H (98-107) mmol/L Glucose (74-99) mg/dL Total Protein 5.5 L (6.3-8.2) g/dL Albumin 3.2 L (3.5-5.0) g/dL
[2024-07-16 16:21] LABS: Glucose,Whole Blood 85 mg/dL (70-110)
[2024-07-16] MEDS: LORazepam 0.5 MG TAB PO PRN (16:42)
[2024-07-16 20:07] LABS: Glucose,Whole Blood 92 mg/dL (70-110)
[2024-07-17 08:12] LABS: HCT 40.4 % (34.0-46.0); HGB 12.7 gm/dL (11.4-16.0); MCH 29.4 pg (25.0-35.0); MCHC 31.4 g/dL (31.0-37.0); MCV 93.7 fL (80.0-100.0); Mean Platelet Volume 6.4; Platelet Count 359 k/uL (150-450); RBC 4.32 m/uL (3.80-5.40); RDW 12.8 % (11.5-15.5)
[2024-07-17 08:40] LABS: ALT 9 U/L (4-34); AST 18 U/L (14-36); African American GFR (CKD) >90 (>60 ml/min/1.73 sqM); Albumin 3.1 g/dL (3.5-5.0); Alkaline Phosphatase 37 U/L (38-126); Anion Gap 7 mmol/L; Blood Urea Nitrogen 10 mg/dL (7-17); Calcium 8.6 mg/dL (8.4-10.2); Carbon Dioxide 22 mmol/L (22-30); Chloride 111 mmol/L (98-107); Glucose 79 mg/dL (74-99); Magnesium 1.9 mg/dL (1.6-2.3); Non-African American GFR(CKD) >90 (>60 ml/min/1.73 sqM); Potassium 3.8 mmol/L (3.5-5.1); Sodium 140 mmol/L (137-145); Total Bilirubin 0.9 mg/dL (0.2-1.3); Total Protein 5.3 g/dL (6.3-8.2)
[2024-07-17] MEDS: LORazepam 1 MG TAB PO PRN (09:13)
--- NOTE | 2024-07-17 12:32 | P.PN ---
Subjective Progress Note Date: 07/17/24 Hospital course: Patient is a 39-year-old female with a past medical history of daily alcohol abuse with last drink being 5 days ago as she was incarcerated on 07/12/2024, polysubstance abuse with opioids and benzodiazepines, and reports of a benign brain tumor. She presented to the emergency department on 07/15/2024 in custody of [facility] secondary to reports of witnessed seizure-like activity and concerns of alcohol withdrawal. Per [facility] officers seizure activity lasted less than 1 minute. Upon arrival to our facility patient underwent evaluation in the emerg ency department. Vital signs upon arrival show blood pressure 111/72, heart rate 79, respiratory rate 20, temp 98.6 F, and SpO2 of 98% on room air. EKG was completed showing normal sinus rhythm at 93 bpm with T wave inversion in inferior leads III and aVF. Labs were completed and reviewed. CBC showing leukocytosis with WBC count of 15.9, coagulation profile normal findings. BMP showing hypokalemia with potassium of 3.4 and hyperchloremia with chloride of 110 otherwise normal findings. Blood glucose was 113. Troponin was less than 0.012. And serum alcohol level was less than 10. Patient admitted under our services for medical detox with plans to release back to [facility] once medically s table. Physical exam: Patient seen and fully evaluated at bedside this morning. She was resting comfortably in bed no noted tremors at this time but upon awakening patient did have mild tremors noted. Discussed with patient and [facility] officer at bedside, gale blake has received 9.5 mg of Ativan over the past 24 hours will monitor for an additional 24 and pending Ativan needs we will plan for likely discharge back to [facility] tomorrow morning. Vital signs reviewed and stable. General: Nontoxic, no distress and appears stated age. Derm: Skin warm and dry, normal coloration for ethnicity. Head: Atraumatic, normocephalic and symmetric. Eyes: EOM's intact, no lid lag, and anicteric sclera Mouth: no lip lesions, mucus membranes moist Cardiovascular: regular rate and rhythm with normal S1S2, no murmur, positive posterior tibial pulses bilaterally, and cap refill < 2 seconds. Lungs: Respirations even, regular, and unlabored on room air. Lungs CTA bi laterally, no rhonchi, no rales, no wheezing, and no accessory muscle usage. Abdominal: soft, nontender to palpation, no guarding, no appreciable organomegaly Ext: ROM intact. No gross muscle atrophy, no edema, no contractures Neuro: Speech clear, face symmetrical and CN II-XII grossly intact with no noted focal neuro deficits. Mild tremors noted. Psych: Alert and oriented to person, place, time, and situation. Patient appears anxious and fidgety. Assessment and Plan of Care: Alcohol withdraw Witnessed seizure activity, suspect alcohol withdrawal Hypomagnesemia, resolved History of polysubstance abuse with opioids and benzodiazepines History of daily alcohol abuse, patient incarcerated on 07/12/2024 Reported history of benign brain tumor Hypokalemia, resolved -Continue r monitoring of CIWA scores and patient to be medicated with Ativan 0.5 mg every 4 hours as needed for CIWA score of 4-5, Ativan 1 mg every 4 hours for CIWA score of 6-7, Ativan 2 mg every 3 hours CIWA score of 8-9, and Ativan 2 mg every 2 hours forr CIWA score of 10 or greater. Most recent CIWA score 5. Patient has received 9.5 mg of Ativan in the past 24 hours. -Continuous IV hydration with 0.9% normal saline at 75 cc/h. -Thiamine 100 mg daily, and Multivitamin daily, and Folate 1 mg daily -Seizure, fall, aspiration, and elopement precautions in place. -Order placed for stat serum hCG which was negative for . -Continued close monitoring of electrolytes and replace as needed. -Telemetry monitoring. -Order placed for CT brain, patient presented with witnessed seizure activity suspected to be secondary to EtOH withdrawal as it has been 5 days since patient's last drink with reports of daily alcohol abuse drinking a minimum of 1/5 of vodka daily. However patient also reporting history of brain tumor, therefore we will send patient for CT brain for further evaluation. Pending results of CT brain, may consider EEG. Data and imaging reviewed: Serum hCG negative. CBC showing improvement of leukocytosis with WBC count of 13.0 otherwise normal findings. BMP showing mild hyperchloremia with chloride of 111 otherwise normal findings. Blood glucose 79. Magnesium 1.9. Liver profile showing no significant abnormalities with the exception of hypoalbuminemia with albumin of 3.1. Vital signs reviewed. Blood pressure 133/86, heart rate 71, respiratory rate 20, temp 98.6 F, and SpO2 100% on room air. CODE STATUS: Full code DVT prophylaxis: Lovenox Anticipated discharge date: Likely tomorrow morning. Anticipated discharge place: Return into custody of [facility], [facility] officer remains at bedside. Patient was seen independently by Nurse Pracitioner. This document was prepared using [employer] dictation software. Please allow for errors in clothing cutter, while rare they do occur. Objective - Vital Signs Vital signs: Vital Signs Temp 98.8 F 07/17/24 04:00 Pulse 76 07/17/24 04:00 Resp 18 07/17/24 04:00 BP 115/70 07/17/24 04:00 Pulse Ox 100 07/17/24 04:00 FiO2 Intake & Output 07/16/24 07/17/24 07/17/24 18:59 06:59 18:59 Intake Total 375 Balance 375 Weight 57.153 kg 61 kg Intake: Intake, IV Titration 375 Amount Sodium Chloride 0.9% 1, 375 000 ml @ 75 mls/hr IV . [id number] DERICK Rx#:[id number] Other: # Voids 2 1 - Labs CBC & Chem 7: 07/17/24 07:34 07/17/24 07:34 Labs: Abnormal Lab Results - Last 24 Hours (Table) 07/17/24 07/17/24 Range/Units 07:34 07:34 WBC 13.0 H (3.8-10.6) k/uL Chloride 111 H (98-107) mmol/L Alkaline Phosphatase 37 L (38-126) U/L Total Protein 5.3 L (6.3-8.2) g/dL Albumin 3.1 L (3.5-5.0) g/dL
[2024-07-18 04:41] VITALS: RESP 16
[2024-07-18 11:07] VITALS: BP 109/73; PULSE 77; TEMP 98.3
--- NOTE | 2024-07-18 11:45 | P.DS ---
Providers Date of admission: 07/15/24 18:38 Expected date of discharge: 07/18/24 Attending physician: Hamzah Domingo MD Primary care physician: Stated None Hospital Course: Discharge Diagnosis: Alcohol withdraw Witnessed seizure activity, suspect withdrawal from alcohol and benzodiazepines History of polysubstance abuse with opioids and benzodiazepines History of daily alcohol abuse Reported history of benign brain tumor Hypokalemia, resolved Hypomagnesemia, resolved Hospital course: Patient is a 39-year-old female with a past medical history of daily alcohol abuse with last drink being 5 days ago as she was incarcerated on 07/12/2024, polysubstance abuse with opioids and benzodiazepines, and reports of a benign br ain tumor. She presented to the emergency department on 07/15/2024 in custody of [facility] secondary to reports of witnessed seizure-like activity and concerns of alcohol withdrawal. Per [facility] officers seizure activity lasted less than 1 minute. Upon arrival to our facility patient underwent evaluation in the emergency department. Vital signs upon arrival show blood pressure 111/72, heart rate 79, respiratory rate 20, temp 98.6 F, and SpO2 of 98% on room air. EKG was completed showing normal sinus rhythm at 93 bpm with T wave inversion in inferior leads III and aVF. Labs were completed and reviewed. CBC showing leukocytosis with WBC count of 15.9, coagulation profile normal findings. BMP showing hypokalemia with potassium of 3.4 and hyperchloremia with chloride of 110 otherwise normal findings. Blood glucose was 113. Troponin was less than 0.012. And serum alcohol level was less than 10. Patient admitted under our services for medical detox with plans to release back to [facility] once medically stable. Serum hCG negative. Order was placed for CT brain, patient presented with witnessed seizure activity suspected to be secondary to withdrawal from benzodiazepines/opioids and alcohol, as it has been 5 days since patient's last drink/drug use, However patient also reported history of brain tumor, therefore we sent patient for CT brain for further evaluation. CT brain was negative for acute intracranial process showing no mass/tumor reported. Patient was monitored closely with use of CIWA protocol with symptom triggered medication management with benzodiazepines. She had no further episodes of seizure-like activity. Ativan was weaned back down and patient has went over 12 hours without receiving any benzodiazepines. Medically, patient is stable at this time and she is cleared to return to retirement in custody of [facility] officers. Discharge instructions discussed with patient and [facility] officer at bedside. Physical exam: Vital signs reviewed and stable. General: Nontoxic, no distress and appears stated age. Derm: Skin warm and dry, normal coloration for ethnicity. Head: Atraumatic, normocephalic and symmetric. Eyes: EOM's intact, no lid lag, and anicteric sclera Mouth: no lip lesions, mucus membranes moist Cardiovascular: regular rate and rhythm with normal S1S2, no murmur, positive posterior tibial pulses bilaterally, and cap refill < 2 seconds. Lungs: Respirations even, regular, and unlabored on room air. Lungs CTA bilaterally, no rhonchi, no rales, no wheezing, and no accessory muscle usage. Abdominal: soft, nontender to palpation, no guarding, no appreciable organomegaly Ext: ROM intact. No gross muscle atrophy, no edema, no contractures Neuro: Speech clear, face symmetrical and CN II-XII grossly intact with no noted focal neuro deficits. Mild tremors noted. Psych: Alert and oriented to person, place, time, and situation. Patient appears anxious and fidgety. A total of 33 minutes of time were spent preparing this complex discharge summary. Pt was discharged on 07/18/24 at 9:04 AM Patient was seen independently by Nurse Practitioner. This document was prepared using [employer] dictation software. Please allow for errors in professor of business while rare they do occur. I reviewed the documentation as provided by the CRYSTAL above, who is the original author of this note. I agree with the documented assessment and plan, with the following changes: none Patient Condition at Discharge: Stable Plan - Discharge Summary Discharge Rx Participant: No New Discharge Prescriptions: New Multivitamins, Thera [Multivitamin (formulary)] 1 each PO DAILY 30 Days #30 tab Folic Acid 1 mg PO DAILY 30 Days #30 tab Thiamine [Vitamin B-1] 100 mg PO DAILY 30 Days #30 tab Continue Promethazine [Phenergan] 25 mg PO TID PRN PRN Reason: Nausea And Vomiting Loperamide HCl [Loperamide] 2 mg PO TID PRN PRN Reason: Diarrhea cloNIDine HCL [Catapres] 0.1 mg PO TID PRN PRN Reason: detox symptoms hydrOXYzine pamoate [Vistaril] 50 mg PO TID PRN PRN Reason: Anxiety Acetaminophen [Tylenol] 650 mg PO TID PRN PRN Reason: Pain Or Fever > 100.5 Dicyclomine [Bentyl] 20 mg PO TID PRN PRN Reason: cramps Discharge Medication List Acetaminophen [Tylenol] 650 mg PO TID PRN 07/15/24 [History] Dicyclomine [Bentyl] 20 mg PO TID PRN 07/15/24 [History] Loperamide HCl [Loperamide] 2 mg PO TID PRN 07/15/24 [History] Promethazine [Phenergan] 25 mg PO TID PRN 07/15/24 [History] cloNIDine HCL [Catapres] 0.1 mg PO TID PRN 07/15/24 [History] hydrOXYzine pamoate [Vistaril] 50 mg PO TID PRN 07/15/24 [History] Folic Acid 1 mg PO DAILY 30 Days #30 tab 07/18/24 [Rx] Multivitamins, Thera [Multivitamin (formulary)] 1 each PO DAILY 30 Days #30 tab 07/18/24 [Rx] Thiamine [Vitamin B-1] 100 mg PO DAILY 30 Days #30 tab 07/18/24 [Rx] Follow up Appointment(s)/Referral(s): Pamela Artis MD [REFERRING] - 1 Week (Recommend following up and establishing care once released from [facility]. Pending release from [facility] please follow up with [facility] health clinic. ) Patient Instructions/Handouts: Seizure/Epilepsy Discharge Instructions & Follow-Up, Alcohol Withdrawal (DC), Polysubstance Abuse (ED) Activity/Diet/Wound Care/Special Instructions: Activity: As tolerated. No restrictions. Diet: Resume regular diet Special Instructions: Seizure precautions, avoid climbing ladders, operating dangerous or heavy machinery or unsupervised swimming until seizure free for 6 months. [place] state law states no driving until seizure free for 6 months. You are medically clear to return to retirement at this time. You are being released into custody of [facility] officers. Please follow-up with [facility] medical clinic. Discharge Disposition: OTHER INSTITUTION NOT DEFINED
== END 2024-07-18 10:42 | DRG 773 ==
LOC: EC 17:41 → 3SCARD 18:38
PROVIDERS: ADMIT Internal Medicine; ATTEND Internal Medicine
DX: F10.239 Alcohol dependence with withdrawal, unspecified (principal); G40.909 Epilepsy, unspecified, not intractable, without status epilepticus; F11.10 Opioid abuse, uncomplicated; F17.200 Nicotine dependence, unspecified, uncomplicated; E83.42 Hypomagnesemia; R11.2 Nausea with vomiting, unspecified; R19.7 Diarrhea, unspecified; D72.829 Elevated white blood cell count, unspecified; D33.2 Benign neoplasm of brain, unspecified; E87.6 Hypokalemia; E87.8 Other disorders of electrolyte and fluid balance, not elsewhere classified; F13.10 Sedative, hypnotic or anxiolytic abuse, uncomplicated; Z79.899 Other long term (current) drug therapy
CPT/HCPCS: 70470; 71045; 80053; 80320; 83690; 83735; 84100; 84484; 84703; 85025; 85027; 85610; 93005